=== PATIENT | male | born 2005 | race African-American/Black ===

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

== ENCOUNTER 2025-03-12 00:46 | Emergency (ER) | payer OTHER ==
[~2025-03-12] VITALS: Ht 160 cm; Wt 50.8 kg
[2025-03-12 01:09] VITALS: BP 104/58; O2SAT 99
[2025-03-12] MEDS ORDERED: ONDANSETRON 4 MG TAB.RAPDIS PO STA (02:08)
[2025-03-12 02:55] LABS: BASO % 0.5 % (0.1-1.2); EOS # 0.07 (0.04-0.54); EOS % 0.3 % (0.7-7.0); LYMPH # 10.12 (1.18-3.74); LYMPH % 47.6 % (19.3-53.1); MEAN PLATELET VOLUME 11.20 fl (9.4-12.4); MONO # 3.91 (0.24-0.82); NEUT # 6.94 (1.56-6.13); NEUT % 32.8 % (34.0-71.1); RED CELL DISTRIBUTION WIDTH 12.9 % (11.6-14.4)
[2025-03-12 02:59] LABS: MONO % 18.4 % (4.7-12.5)
[2025-03-12 03:23] LABS: COVID-19 AG NEGATIVE (NEGATIVE)
[2025-03-12] MEDS ORDERED: ZITHROMAX500 MG PO (04:23)
[2025-03-12] MEDS ORDERED: ZOFRAN8 MG PO (04:23)
[2025-03-12] MEDS ORDERED: PEPCID40 MG PO (04:23)
== END 2025-03-12 04:33 ==
LOC: ER 00:55 → EMR PED 00:55
PROVIDERS: General Practice
DX: R11.2 Nausea with vomiting, unspecified (principal); J02.9 Acute pharyngitis, unspecified; R53.81 Other malaise